=== PATIENT | female | born 1990 | race Two or more races ===

== ENCOUNTER 2019-07-20 12:39 | Emergency (ER) | payer OTHER ==
[~2019-07-20] VITALS: Ht 157.5 cm; Wt 56.7 kg
[2019-07-20 12:40] VITALS: BP 118/80
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
--- NOTE | 2019-07-20 12:47 | NUR ---
SHIRA BAEZ AT BEDSIDE FOR EVAL.
[2019-07-20] MEDS ORDERED: ONDANSETRON HCL/PF 4 MG/2 ML VIAL IVP ONE (13:00)
[2019-07-20] MEDS ORDERED: IV NS 0.9% 1,000 ML BAG IV ONE (13:00)
[2019-07-20] MEDS ORDERED: ONDANSETRON HCL/PF 4 MG/2 ML VIAL ONE (13:04)
[2019-07-20 13:06] LABS: BASOPHILS % (AUTO) 0.7 % (0.0-2.0); EOSINOPHILS % (AUTO) 0.1 % (0.0-6.0); HEMATOCRIT 38 % (33-45); HEMOGLOBIN 12.3 g/dL (11.5-14.8); LYMPHOCYTES # (AUTO) 0.8 /CMM (0.8-4.8); MEAN CORPUSCULAR HGB CONC 33 g/dl (31.0-36.0); MEAN CORPUSCULAR VOLUME 77 fL (82-100); MONOCYTES # (AUTO) 0.4 /CMM (0.1-1.30); MONOCYTES % (AUTO) 6.6 % (2.0-12.0); NEUTROPHILS # (AUTO) 4.7 /CMM (1.8-8.9); NEUTROPHILS % (AUTO) 79.6 % (43.0-81.0); PLATELET COUNT (AUTO) 395 /CMM (150-450); RED BLOOD CELL COUNT(AUTO) 4.85 MIL/uL (4.0-5.2); WHITE BLOOD COUNT (AUTO) 5.9 K/uL (4.3-11.0)
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
[2019-07-20 13:22] LABS: ALBUMIN 3.5 g/dL (3.4-5.0); BILIRUBIN,DIRECT 0.2 mg/dL (0.0-0.2); BILIRUBIN,TOTAL 0.8 mg/dL (0.2-1.0); CREATININE 0.8 mg/dL (0.6-1.3); TOTAL PROTEIN, SERUM 8.2 g/dL (6.4-8.2)
[2019-07-20 13:27] LABS: POTASSIUM 2.8 mmol/L (3.5-5.1)
[2019-07-20] MEDS ORDERED: POTASSIUM CL. PREMIX PERIPHER. 50 ML ONE ×2 (14:10→15:07)
[2019-07-20] MEDS: POTASSIUM CL. PREMIX PERIPHER. 50 ML IV SCH ×3 (14:16→18:26)
--- NOTE | 2019-07-20 14:16 | NUR ---
[employer] AT BEDSIDE TALKING TO PT.
[2019-07-20 15:20] LABS: ALCOHOL, BLOOD 489 mg/dL (0-0); LIPASE 280 U/L (73-393)
--- NOTE | 2019-07-20 15:55 | NUR ---
PT TO RADIOLOGY FOR HEAD AND C SPINE CT VIA [facility].
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
[2019-07-20] MEDS ORDERED: POTASSIUM CL. PREMIX PERIPHER. 100 ML ONE (16:50)
--- NOTE | 2019-07-20 19:59 | NUR ---
Patient given written and verbal discharge instructions. Patient verbalizes understanding of instructions. Patient is ambulatory with steady gait. Refuses offer of prison placement. Patient given list of available shelters in surrounding area.IV removed. Catheter intact and site benign. Pressure and 4x4 applied to site. No bleeding noted.
== END 2019-07-20 19:59 | disposition home or self-care (01) ==
LOC: EDBD 12:41 → ER 12:41
DX: S16.1XXA Strain of muscle, fascia and tendon at neck level, initial encounter (principal); S09.8XXA Other specified injuries of head, initial encounter; T74.21XA Adult sexual abuse, confirmed, initial encounter; F10.129 Alcohol abuse with intoxication, unspecified; R10.30 Lower abdominal pain, unspecified; E87.6 Hypokalemia; K76.0 Fatty (change of) liver, not elsewhere classified; R74.0 Nonspecific elevation of levels of transaminase and lactic acid dehydrogenase [LDH]; R51 Headache; Y90.8 Blood alcohol level of 240 mg/100 ml or more; Z30.430 Encounter for insertion of intrauterine contraceptive device; Z59.0 Homelessness; Y04.8XXA Assault by other bodily force, initial encounter; Y93.89 Activity, other specified; Y92.89 Other specified places as the place of occurrence of the external cause; Y99.8 Other external cause status
CPT/HCPCS: 36415; 70450; 72125; 74176; 80048; 80076; 80307; 83690; 84702; 85025; 96365; 96366; 96375; 99285; J2405; J3480 ×3; J7030; G0480